=== PATIENT | female | born 1975 | race American Indian/Alaskan Native ===

== ENCOUNTER 2017-06-11 06:24 | Emergency (ER) | payer BC, OTHER ==
[2017-06-11 07:41] VITALS: BMI 23.9
[2017-06-11] MEDS ORDERED: DIPHTH,PERTUSS(ACELL),TET 0.5 ML DISP.SYRIN IM ONE (07:43)
--- NOTE | 2017-06-11 07:46 | PDOC ---
History of Present Illness - General Chief Complaint: Laceration Stated Complaint: FALL History Source: Patient Exam Limitations: No Limitations - History of Present Illness Initial Comments: 06/11/17 07:55 Chief complaint: Fell getting out of shower laceration lateral to right eyebrow slight pain and left thumb History of present illness: Patient is a 41-year-old female with a history of asthma, fibrocystic breast, and chronic lower back pain here today due to patient's sustained laceration to her right eyebrow hitting the wall and she lost her balance. 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 Patient also reports having slight discomfort to her left proximal thumb with minimal swelling and tenderness. Patient is unsure of her tetanus status agrees to have it updated here today. Patient is unsure status will get urine hCG. Patient denies any loss of consciousness, any headaches just tenderness around laceration site. Patient denies any nausea vomiting change in vision or level of alertness or any dizziness or any hemotympanum. 06/12/17 08:10 Occurred: reports: just prior to arrival Severity: reports: moderate Pain Location: reports: face (slighty rt of rt. eyebrow temporal area at laceration site ) Method of Injury: Yes: fall Modifying Factors: improves with: None Loss of Consciousness: no loss of consciousness Associated Symptoms (Fall): denies symptoms Past History - Past Medical History Allergies/Adverse Reactions: Allergies Allergy/AdvReac Type Severity Reaction Status Date / Time No Known Allergies Allergy Verified 06/11/17 06:34 Home Medications: Ambulatory Orders Albuterol Sulfate Inhaler - [Ventolin Hfa Inhaler -] 1 - 2 inh PO Q4H 06/11/17 Asthma: Yes Other medical history: chronic lower back pain, fibrocystic breasts - Psycho/Social/Smoking Cessation Hx Anxiety: No Suicidal Ideation: No Smoking History: Never smoked Have you smoked in the past 12 months: No Information on smoking cessation initiated: No Hx Alcohol Use: No Drug/Substance Use Hx: No Substance Use Type: None Review of Systems - Review of Systems Able to Perform ROS?: Yes Constitutional: No: Symptoms Reported HEENTM: No: Symptoms Reported Respiratory: No: Symptoms reported Cardiac (ROS): No: Symptoms Reported ABD/GI: No: Symptoms Reported : No: Symptoms Reported Musculoskeletal: Yes: Joint Pain (left proximal thumb ), Joint Swelling ( minimal left proximal thumb ) Integumentary: Yes: Other (laceration stellate rt. temporal area lateral to rt. eyebrow approx 4 cm length with area of 1.5cm cm branching off from vertical line of laceration) Neurological: No: Symptoms reported *Physical Exam - Vital Signs Last Vital Signs Temp Pulse Resp BP Pulse Ox 92 H 12 126/69 100 06/11/17 06:34 06/11/17 06:34 06/11/17 06:34 06/11/17 06:34 - Physical Exam General Appearance: Yes: Appropriately Dressed HEENT: positive: EOMI, FLY, Normal ENT Inspection Neck: negative: Tender, Lymphadenopathy (R), Lymphadenopathy (L), Rigidity, Tender lateral, Tender midline Respiratory/Chest: positive: Lungs Clear, Normal Breath Sounds. negative: Chest Tender, Respiratory Distress Cardiovascular: positive: Regular Rhythm, Regular Rate Extremity: positive: Normal Capillary Refill, Normal Range of Motion (left thumb ), Tender (left proximal thumb slight ), Swelling (minimal left proximal thumb ) Integumentary: positive: Other (laceration stellate lateral to rt. eyebrow approx 4 cm linear with 1.5 cm branch off of 4 cm laceration ) Neurologic: positive: commercial review appraiser II-XII NML intact, Fully Oriented, Alert, Normal Response, Respond to painful stimul, Responsive, Finger to Nose. negative: Numbness, Sensory Deficit Procedures - Additional Procedures Progress: 06/12/17 08:12 laceration cleansed with NS 0.9% Medical Decision Making - Medical Decision Making 06/11/17 07:57 Patient is a 41-year-old female with a history of asthma, fibrocystic breast, and chronic lower back pain here today due to patient's sustained laceration to her right eyebrow hitting the wall and she lost her balance. 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 Patient also reports having slight discomfort to her left proximal thumb with minimal swelling and tenderness. Patient is unsure of her tetanus status agrees to have it updated here today. Patient is unsure status will get urine hCG. Patient denies any loss of consciousness, any headaches just tenderness around laceration site. Patient denies any nausea vomiting change in vision or level of alertness or any dizziness or any hemotympanum. Laceration stellate lateral to right eyebrow Left thumb musculoskeletal pain approximately Plan: TDAP 0.5 ml IM now urine HCG pt agrees with for consult with plastic surgeon acetaminophen 975mg po now 06/11/17 07:58 Dr Bustillo called back he could see pt. in [place] later today to do repair, pt does not want to go there Dr. Mcnamara called he recommended that pt. come to his office for repair in approx 3 hours, his office staff informed they will call here 15 minutes prior to him being able to see her. Pt. 's insurance faxed to their office 06/11/17 08:04 06/11/17 09:54 06/11/17 10:30 PT TO BE DISCHARGE TO GO IMMEDIATELY TO DR. MCNAMARA'S OFFICE FOR LACERATION REPAIR 06/11/17 10:31 06/12/17 08:11 06/12/17 08:12 *DC/Admit/Observation/Transfer Diagnosis at time of Disposition: Laceration of face, complex Qualifiers: Encounter type: initial encounter Qualified Code(s): S01.91XA - Laceration without foreign body of unspecified part of head, initial encounter Fall Qualifiers: Encounter type: initial encounter Qualified Code(s): W19.XXXA - Unspecified fall, initial encounter - Discharge Dispostion Disposition: HOME Condition at time of disposition: Stable - Referrals Referrals: Mahad Mcnamara MD [Staff Physician] - - Patient Instructions Additional Instructions: TODAY YOUR TETANUS, DIPTHERIA, PERTUSSIS VACCINE WAS UPDATED GO DIRECTLY TO [facility] FOR REPAIR OF LACERATION TAKE ACETAMINOPHEN NEEDED DIRECTED BY GLOVE WRAPPER KEEP WOUND DRY ON FACE FOLLOW UP WITH YOUR PRIMARY CARE PROVIDER TOMORROW RETURN TO EMERGENCY ROOM IF ANY DIZZINESS, NAUSEA, VOMITING, SEVERE HEADACHE, CHANGE IN VISION OR LEVEL OF ALERTNESS
[2017-06-11] MEDS ORDERED: ACETAMINOPHEN 325 MG TABLET (FP) PO ONE (08:03)
[2017-06-11] MEDS ORDERED: ACETAMINOPHEN 325 MG TABLET (FP) ONE (08:16)
[2017-06-11 10:22] VITALS: BP 105/73; PULSE 79; TEMP 98
--- NOTE | 2017-06-12 11:59 | OP ---
Operative Note - Note: Operative Date: 06/11/17 Pre-Operative Diagnosis: Complex Open Wound Right Eyebrow and Temporal Area Operation: Debridement of wound right eyebrow and temporal region with complex closure Findings: Large Stellate wound Right eyebrow and temporal region. Wound with multiple converging lacerations. Longest component at superior margin of right eyebrow. Procedure: Wound cleaned with Betadine. Local area anesthetized with 1% Lidocaine with epinephrine. Superior edge of transverse laceration marked and excised. Several temporary 5-0 nylon sutures placed to align wound segments. Deep tissues approximated with 4-0 Biosyn sutures in interrupted buried fashion. Skin closed with 6-0 and 7-0 nylon sutures in interrupted fashion. Temporary sutures then removed. Wound dressed with Bacitracin and sterile gauze. Patient will return to office Friday. Post-Operative Diagnosis: Same as Pre-op Surgeon: Mahad Lopez Anesthesia: Local Operative Report Dictated: No
== END 2017-06-11 10:23 | disposition home or self-care (01) ==
LOC: JER 06:24
PROC: 3E0234Z Introduction of Serum, Toxoid and Vaccine into Muscle, Percutaneous Approach (ICD-10-PCS; principal; 2017-06-11)
DX: S01.111A Laceration without foreign body of right eyelid and periocular area, initial encounter (principal); W18.2XXA Fall in (into) shower or empty bathtub, initial encounter; Y93.E1 Activity, personal bathing and showering; Y92.031 Bathroom in apartment as the place of occurrence of the external cause; Y99.8 Other external cause status
CPT/HCPCS: 90715; 99283-25

== ENCOUNTER 2020-07-01 21:08 | Emergency (ER) | payer OTHER ==
[2020-07-01 21:17] VITALS: BP 129/87; PULSE 67; TEMP 97; BMI 22.4
--- OUTSIDE RECORDS SUMMARY | 2020-07-01 21:29 | XMS ---
:1975 Author Organization [facility] Care Team Providers Name Role Phone Mohamud Aster Unavailable Unavailable Matty Agustin Unavailable Unavailable Rupa Ramirez Unavailable Unavailable Earleowitz, F Unavailable Unavailable Sammy Unavailable Unavailable SKYLER, L MD Unavailable Unavailable SKYLER, L MD Unavailable Unavailable SKYLER, L MD Unavailable Unavailable SKYLER, L MD Unavailable Unavailable SKYLER, L MD Unavailable Unavailable SKYLER, L MD Unavailable Unavailable SKYLER, L MD Unavailable Unavailable SKYLER, L MD Unavailable Unavailable Cutler Unavailable Unavailable LaPorta, A Unavailable Unavailable Fitzgibbon, D Unavailable Unavailable Bures Unavailable Unavailable Nunu Unavailable Unavailable Bustillo, B Unavailable Unavailable Mahad, C Unavailable Unavailable Jackson, N Unavailable Unavailable Pranav, M Unavailable Unavailable Re-disclosure Warning The records that you are about to access may contain information from federally- assisted alcohol or drug abuse programs. If such information is present, then the following federally mandated warning applies: This information has been disclosed to you from records protected by federal confidentiality rules (42 CFR part 2). The federal rules prohibit you from making any further disclosure of this information unless further disclosure is expressly permitted by the written consent of the person to whom it pertains or as otherwise permitted by 42 CFR part 2. A general authorization for the release of medical or other information is NOT sufficient for this purpose. The Federal rules restrict any use of the information to criminally investigate or prosecute any alcohol or drug abuse patient.The records that you are about to access may contain highly sensitive health information, the redisclosure of which is protected by Article 27-F of the [place] State Public Health law. If you continue you may haveaccess to information: Regarding HIV / AIDS; Provided by facilities licensed or operated by the [facility] Office of Mental Health; or Provided by the [facility] Office for People With Developmental Disabilities. If such information is present, then the following [facility] mandated warning applies: This information has been disclosed to you from confidential records which are protected by state law. State law prohibits you from making any further disclosure of this information without the specific written consent of the person to whom it pertains, or as otherwise permitted by law. Any unauthorized further disclosure in violation of state law may result in a fine or detention sentence or both. A general authorization for the release of medical or other information is NOT sufficient authorization for further disclosure. Allergies and Adverse Reactions Type Description Substance Reaction Status Data Source(s ) 3 NO KNOWN ALLERGIES Clindamycin 150 MG Oral NEXTGEN ([facility] Tablet [Clintabs] [facility]) Encounters Encounter Providers Location Date Indications Data Source(s ) Outpatient Attender: Herminio 05/10/2020 NEXTGEN ([facility] Bures 12:00:00 AM [facility]) Outpatient Attender: MOMO 05/01/2020 NEXTGEN ([facility] SKYLER ZAVALA 11:41:00 AM [facility]) Outpatient Attender: Azeem 12/07/2019 NEXTGEN ([facility] FitzgibbonReferrer: 02:00:[address] [facility] Ke Tobin [facility]) Outpatient Attender: Ke 12/07/2019 NEXTGEN (Bisi TobinReferrer: 11:45:00 AM [facility]) Outpatient Attender: Azeem 12/07/2019 NEXTGEN ([facility] Fitzgibbon 12:00:00 AM [facility]) Outpatient Attender: Marleny 12/03/2019 NEXTGEN ([facility] Diazerrer: 09:40:00 AM [facility]) Outpatient Attender: Ke Tobin 12/03/2019 NEXT GEN ([facility] 12:00:00 AM [facility]) Outpatient Attender: Herminio 11/23/2019 NEXTGEN ([facility] Bures 05:39:00 [place] [facility] [place] [facility] Outpatient Attender: Marleny 11/19/2019 NEXTGEN ([facility] ReillyReferrer: Ross 02:20:00 PM [facility] [facility] [place] [facility]) Outpatient Attender: Ke 11/15/2019 NEXTGEN (Bisi areafshin TobinReferrer: Ke 09:45:00 AM [facility] [place] [facility]ad [facility]) Outpatient Attender: Marleny 11/05/2019 NEXTGEN ([facility] ReillyReferrer: Ross 09:00:00 AM [facility] [facility] [place] [facility] [facility]) Outpatient Attender: Herminio 11/03/2019 NEXTGEN ([facility] BuresReferrer: 02:00:00 PM [facility] [place] [facility]io [facility] Outpatient Attender: Lisa 11/02/2019 NEXTGEN ([facility] Jacobowitz 12:18:00 PM [facility] [place] [facility] Outpatient Attender: Lisa 10/29/2019 NEXTGEN ([facility] JacobowitzReferrer: 11:45:00 AM [facility] [place] Lisa [facility]owitz [facility]) Outpatient Attender: Lisa 10/29/2019 NEXTGEN ([facility] Jacobowitz 08:50:00 AM [facility] [place] [facility] Outpatient Attender: Mahad 10/29/2019 NEXTGEN ( [facility] BergerReferrer: 12:00:00 AM [facility] [place] Lisa [facility]owitz [facility] Outpatient Attender: Lisa 10/28/2019 NEXTGEN ([facility] JacobowitzReferrer: 09:00:00 AM [facility] [place] Lisa Jacobowitz [facility]) Outpatient Attender: Fartun 10/28/2019 NEXTGEN ([facility] MathewsReferrer: 08:45:00 AM [facility] [place] [facility]) Outpatient Attender: Fartun 10/27/2019 NEXTGEN ([facility] [place] 12:44:00 PM [facility] [place] [facility] Outpatient Attender: Fartun 10/25/2019 NEXTGEN ([facility] [place] 01:11:00 PM [facility] [place] [facility] Outpatient Attender: Fartun 10/22/2019 NEXTGEN ([facility] MathewsReferrer: 10:45:00 AM [facility] [place] [facility]) Outpatient Attender: Aster 10/22/2019 NEXTGEN ([facility] XuReferrer: Fartun 09:30:00 AM [facility] [place] [facility]) Outpatient Attender: Marleny 10/22/2019 NEXTGEN ([facility] ReillyReferrer: Ross 08:20:00 AM [facility] [facility] [place] [facility] [facility]) Outpatient Attender: Zander Eddy 10/18/2019 NEXTG EN ([facility] 02:48:00 PM [facility] [place] [facility]) Outpatient Attender: Fartun 10/11/2019 NEXTGEN ([facility] [place] 12:52:00 PM [facility] [place] [facility]) Outpatient Attender: Marleny 10/08/2019 NEXTGEN ([facility] ReillyReferrer: Ross 11:20:00 AM Med [facility] [place] [facility]) Outpatient Attender: Aster 10/04/2019 NEXTGEN ([facility] XuReferrer: Fartun 01:00:00 PM [facility]i car[facility] [place] [facility]) Outpatient Attender: Aster Mallory 09/29/2019 NEXTGEN ([facility] 11:28:00 AM [facility] [place] [facility]) Outpatient Attender: Aster Mallory 09/27/2019 NEXTGEN ([facility] 12:00:00 PM [facility] [place] [facility]) Outpatient Attender: Aster 09/24/2019 NEXTGEN ([facility] XuReferrer: Aster Mallory 10:45:00 AM [facility] car[facility] [place] [facility]) Outpatient Attender: Marleny 09/24/2019 NEXTGEN ([facility] ReillyReferrer: 10:20:00 AM [facility] [place] Marco Antonio Jackson [facility]) Outpatient Attender: Zander Eddy 09/06/2019 NEXTG EN ([facility] 03:59:00 PM [facility] [place] [facility]) Outpatient Attender: Zander Eddy 09/06/2019 NEXTG EN ([facility] 03:56:00 PM [facility] [place] [facility]) Outpatient Attender: Marleny 09/03/2019 NEXTGEN ([facility] ReillyReferrer: 10:20:00 AM [facility] [place] Marco Antonio Jackson [facility]) Outpatient Attender: Herminio 09/02/2019 NEXTGEN ([facility] BuresReferrer: 12:20:00 PM [facility] [place] Herminio [facility]) Outpatient Attender: Zander 08/31/2019 NEXTGEN ([facility] LorenanReferrer: Zander 02:15:00 PM Medic [facility] [place] Nunu [facility]) Outpatient Attender: Alcon 08/13/2019 NEXTGEN ( [facility] BrigidophReferrer: 11:00:00 AM [facility] [place] Tobin [facility] ) Outpatient Attender: Ke 08/13/2019 NEXTGEN ([facility] MahadReferrer: 10:15:00 AM [facility] [place] EDT Medical [facility]) Outpatient Attender: Marleny 08/13/2019 NEXTGEN ([facility] Beckyeferrer: Rafael 09:40:00 AM Med ical [place] He EDT Medical Group ) Outpatient Attender: Fartun 07/27/2019 NEXTGEN ([facility] [place] 10:52:00 AM [facility] [place] [facility] ) Outpatient Attender: Fartun 07/23/2019 NEXTGEN ([facility] MathsohamReferrer: 11:00:00 AM [facility] [place] EDT Medical [facility]) Outpatient Attender: Marleny 07/23/2019 NEXTGEN ([facility] KamlayReferrer: 09:40:00 AM [facility] [place] Marleny [facility] EDT Medical [facility]) Outpatient Attender: Mariposa 03/24/2019 NEXTGE N ([facility] LaPorta 12:52:00 PM Medical - [facility]) Outpatient Attender: Herminio 03/19/2019 NEXTGEN ([facility] BuresReferrer: 10:20:00 AM [facility] Herminio Bures EDT Medical Grou p PC) Outpatient Attender: Matty 03/04/2019 NEXTGEN ([facility] RaynerReferrer: 03:00:00 PM [facility] Starr Vamsi EDT Medical Gr oup PC) Outpatient Attender: Herminio 02/10/2019 NEXTGEN ([facility] BuresReferrer: 04:41:00 PM [facility] Herminio Bures EDT Medical Gr[facility] p PC) Medications Medication Brand Start Product Dose Route Administrative Pharmacy [facility] Indications Reaction Description Data Name Date Form Instructions Instructions Source(s) gabapentin GABAPE take 2 capsule RP NEXTGEN 100 MG Oral NTIN by oral route 2 ([facility] Capsule 100 times every day Medical - mg 100 mg [facility] ) This may be an active medication. No end date is available. Start date above may not reflect actual date the medication was s tarted. 30 ACTUAT BREO 11/23/2019 inhale 1 unit RP NEXTGEN fluticasone ELLIPTA 12:00:00 AM by inhalation ([facility] furoate 0.2 EST route every Medical - Or MG/ACTUAT / day [facility] dical vilanterol Group ) 0.025 MG/ACTUAT Dry Powder Inhaler [Breo] 200 mcg-25 mcg/dose 200 mcg-25 mcg/dose This may be an active medication. No end date is available. Prednisone 10 PREDNISONE 10/29/2019 4,4,3,3,2,2,1,1 RP NEXTGEN MG Oral 12:00:00 AM PER INSTRUCTIONS ([facility] Tablet 10 mg EST Medical - [place] 10 mg [facility] Medical [facility]) This may be an active medication. No end date is available. imiquimod 50 IMIQUIMOD 10/22/2019 apply by RP NEXTGEN MG/ML Topical 12:00:00 AM EST topical route ([facility] Cream 5 % 5 % 5 times every Medical - [place] week to the [place] [facility] dical affected Group [facility]) area(s) on feet at bedtime and cover, wash off in AM This may be an active medication. No end date is available. Tacrolimus TACROLIMUS 09/03/2019 apply by RP NEXTGEN 0.0003 MG/MG 12:00:00 AM topical route ([facility] Topical EST 2 times every Med ical - Mt Ointment 0.03 % day a thin [place] [facility] 0.03 % layer to the Group PC) affected area(s) ; rub in gently and completely This may be an active medication. No end date is available. Hydrocortisone HYDROCORTISONE 09/03/2019 apply by RP NEXTGEN 0.025 MG/MG 12:00:00 AM topical ([facility] Topical Ointment EST route 2 Medical - Mt 2.5 % 2.5 % times every K rosendo day a thin Medical layer to the Group P C) affected area(s) for 1 week only 200 ACTUAT VENTOLIN HFA 07/23/2019 inhale 2 RP NEXTGEN Albuterol 0.09 12:00:00 AM puff by ([facility] MG/ACTUAT Metered EDT inhalation Medical - [place] Dose Inhaler route every [place] [Ventolin] 90 mcg 4 - 6 hours Medical 90 mcg as needed Group PC ) This may be an active medication. No end date is available. Insurance Providers Payer name Policy type Policy ID Covered Covered democrat's Policy P bhumi / Coverage democrat ID relationship to [place] [facility] ormation type webster [facility] [id number] [facility] [id number] Healthcare Problems, Conditions, and Diagnoses Code Display Name Description Problem Type Effective Data Sour ce(s) Dates H91.8x9 Other specified Other specified Diagnosis 12/07/2019 NEXT GEN hearing loss, hearing loss, 02:00:00 PM ([facility] unspecified ear unspecified ear EST Medi carol - [facility]) R05 Cough Post-viral cough Diagnosis 11/03/2019 NEXTGEN syndrome 02:00:00 PM ([facility] EST Medical [facility]) J45.30 Mild persistent Mild persistent Diagnosis 11/03/2019 NEXT GEN asthma, asthma without 02:00:00 PM ([facility] uncomplicated complication EST Medical [facility]) L65.9 Nonscarring hair Hair loss Diagnosis 10/22/2019 NEXTGEN loss, unspecified 10:45:00 AM ([facility] EST Medical [facility]) E55.9 Vitamin D Vitamin D Diagnosis 10/22/2019 NEXTGEN deficiency, deficiency, 10:45:00 AM ([facility] unspecified unspecified [facility]) H02.88B Meibomian gland Meibomian gland Diagnosis 09/24/2019 NEXT GEN dysfunction left dysfunction left 10:45:00 AM ( [facility] eye, upper and eye, upper and EST Medica l - [place] lower eyelids lower eyelids [facility] dical Group PC) H02.88A Meibomian gland Meibomian gland Diagnosis 09/24/2019 NEXT GEN dysfunction (MGD) dysfunction (MGD) 10:45:00 AM ([facility] of upper and lower of upper and EST Medi carol - [place] lids of both eyes lower lids of [facility] both eyes Group PC) H01.136 Eczematous Eczema of left Diagnosis 09/24/2019 NEXTGEN dermatitis of left eyelid 10:45:00 AM ([facility] eye, unspecified EST Medical [facility] eyelid [facility]) H01.133 Eczematous Eczema of right Diagnosis 09/24/2019 NEXTGEN dermatitis of eyelid 10:45:00 AM ([facility] right eye, EST Medical - Or unspecified eyelid [facility]) J45.998 Other asthma Poorly controlled Diagnosis 09/02/2019 NEXTG EN persistent asthma 12:20:00 PM ([facility]) R68.81 Early satiety Early satiety Diagnosis 08/31/2019 NEXTGEN 02:15:00 PM ([facility] EST [facility]) R14.0 Abdominal Bloating Diagnosis 08/31/2019 NEXTGEN distension 02:15:00 PM ([facility] (gaseous) EST [facility] PC) H69.81 Other specified Dysfunction of Diagnosis 08/13/2019 NEXTG EN disorders of right eustachian 11:00:00 AM ([facility] Eustachian tube, tube EDT Medical [facility] right ear [facility]) M54.5 Low back pain Midline low back Diagnosis 07/23/2019 NEXTG EN pain without 11:00:00 AM ([facility] sciatica, EDT Medical - Or unspecified [facility] Medical chronicity Group PC) 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 07/23/2019 NE XTGEN pain syndrome I of pain syndrome 11:00:00 AM ([facility] right upper limb type 1 of right EDT Med ical - [facility] Z77.011 Contact with and Lead exposure Diagnosis 07/23/2019 NEXTG EN (suspected) 11:00:00 AM ([facility] exposure to lead EDT Medical - Or Home D[facility]) R92.8 Other abnormal and Other abnormal Diagnosis 07/23/2019 NE XTGEN inconclusive and inconclusive 11:00:00 AM ([facility] findings on findings on EDT Medical - Or diagnostic imaging diagnostic [facility] of breast imaging of breast Group P C) J45.20 Mild intermittent Mild intermittent Diagnosis 07/23/2019 NEXTGEN asthma, asthma, 11:00:00 AM ([facility] uncomplicated uncomplicated EDT Medical - [place] [facility]) Z00.00 Encounter for Health care Diagnosis 07/23/2019 NEXTGEN general adult maintenance 11:00:00 AM ([facility] medical EDT Medical - Or examination [facility] without abnormal Group PC ) findings Z91.19 Patient's Medical Diagnosis 03/19/2019 NEXTGEN noncompliance with non-compliance 10:20:00 AM ( [facility] other medical EDT Medical - M t treatment and [facility] regimen [facility]) N30.00 Acute cystitis Acute cystitis Diagnosis 03/04/2019 NEXTGE N without hematuria without hematuria 03:00:00 PM ([facility] EDT Medical - [place] [facility]) 779.6 TERMINATION OF Termination Of Diagnosis 12/15/2018 CLAIRE AY ([facility] (FETUS) 06:13:00 PM [facility]) Surgeries/Procedures Procedure Description Date Indications Data Source(s) TYMPANOMETRY & REFLEX TYMPANOMETRY & REFLEX 12/07/2019 NEXTGEN THRESH THRESH 12:00:00 AM ([facility] EST Medical - [facility]) COMPREHENSIVE HEARING COMPREHENSIVE HEARING 12/07/2019 NEXTGEN TEST TEST 12:00:00 AM ([facility] Medical - [facility]) DESTRUCT B9 LESION DESTRUCT B9 LESION 11/19/2019 NEX TGEN 1-14 1-14 12:00:00 [facility] OFFICE/OUTPATIENT OFFICE/OUTPATIENT 11/03/2019 NEXTG EN VISIT EST VISIT EST 12:00:00 AM ([facility] Medical - [facility]) X-RAY EXAM CHEST 2 X-RAY EXAM CHEST 2 10/29/2019 NEX TGEN VIEWS VIEWS 12:00:00 AM [facility] OFFICE/OUTPATIENT OFFICE/OUTPATIENT 10/29/2019 NEXTG EN VISIT EST VISIT EST 12:00:00 AM ([facility] Medical - [facility]) EYE EXAM ESTABLISH EYE EXAM ESTABLISH 09/24/2019 NEX TGEN PATIENT PATIENT 12:00:00 AM ([facility] Medical - [facility]) OFFICE/OUTPATIENT OFFICE/OUTPATIENT 09/03/2019 NEXTG EN VISIT EST VISIT EST 12:00:00 AM ([facility]) OFFICE CONSULTATION OFFICE CONSULTATION 08/31/2019 N EXTGEN 12:00:00 AM ([facility]) PREV VISIT EST AGE PREV VISIT EST AGE 1007/23/2019 NEX TGEN 40-64 40-64 12:00:00 AM ([facility] Medical [facility]) Results ID Date Data Source [id number] 06/16/2020 07:59:00 AM EDT [facility] Name Value Range Interpretation Description Data Sup porting Code Source(s) Document(s ) SARS [facility] Coronavirus 2 RNA Presence Respiratory Specimen TALIA Probe Detection This lab was ordered by [facility] and rep orted by [facility]. Procedure
[2020-07-01] MEDS ORDERED: METHOCARBAMOL 500 MG TABLET PO ONE (21:54)
[2020-07-01] MEDS ORDERED: KETOROLAC TROMETHAMINE 30 MG/1 ML VIAL IM ONE (21:54)
--- NOTE | 2020-07-01 22:02 | PDOC ---
History of Present Illness - General Chief Complaint: Pain Stated Complaint: BACK PAIN Time Seen by Provider: 07/01/20 21:18 History Source: Patient Exam Limitations: Clinical Condition - History of Present Illness Initial Comments: 07/01/20 21:58 Patient with past medical history of chronic cervical spondylosis and lumbar spine multiple bulging and herniated disc being followed by neurosurgery present with complaint of 4-day history of persistent severe lower back pain and right side of neck pain which has not been improving with Tylenol. Patient reported she has seen multiple providers for her chronic neck and lower back pain and has been suggested to have surgery done due to severe bulging disc and disc herniations. Patient report having MRI done 2 months ago which shows bulging disks at C5- C6 cervical spine with multiple herniations to lumbosacral spine. Denies saddle paresthesia, urinary or fecal incontinence. Denies any other symptom Is this a multiple visit Asthma Patient?: No Timing/Duration: constant Past History - Medical History Allergies/Adverse Reactions: Allergies Allergy/AdvReac Type Severity Reaction Status Date / Time No Known Allergies Allergy Verified 07/01/20 21:16 Home Medications: Ambulatory Orders Albuterol Sulfate Inhaler - [Ventolin Hfa Inhaler -] 1 - 2 inh PO Q4H 06/11/17 Ketorolac Tromethamine [Toradol] 10 mg PO Q8H PRN #21 tablet 07/01/20 Lidocaine 5% Patch [Lidoderm -] 1 patch TP DAILY #30 patch 07/01/20 Methocarbamol [Robaxin -] 500 mg PO BID PRN #14 tablet 07/01/20 Asthma: Yes COPD: No Other medical history: chronic back pain, CRPS right wrist - Reproductive History Is Patient Now?: No - Psycho-Social/Smoking History Smoking History: Never smoked Have you smoked in the past 12 months: No Review of Systems - Review of Systems Able to Perform ROS?: Yes Is the patient limited Faroese proficient: No Constitutional: No: Chills, Fever, Malaise HEENTM: No: Symptoms Reported, See HPI, Eye Pain, Blurred Vision, Tearing, Recent change in vision, Double Vision, Cataracts, Ear Pain, Ocular Prothesis, Ear Discharge, Nose Pain, Nose Congestion, Tinnitus, Nose Bleeding, Hearing Loss, Throat Pain, Throat Swelling, Mouth Pain, Dental Problems, Difficulty Swallowing, Mouth Swelling, Other Respiratory: No: Symptoms reported, See HPI, Cough, Orthopnea, Shortness of Breath, SOB with Exertion, SOB at Rest, Stridor, Wheezing, Productive cough, Hemoptysis, Other Cardiac (ROS): No: Symptoms Reported ABD/GI: No: Symptoms Reported, Nausea, Vomiting Musculoskeletal: Yes: Symptoms Reported, See HPI, Back Pain, Neck Pain (right side of neck pain) Integumentary: No: Symptoms Reported Neurological: No: Symptoms reported, Numbness, Paresthesia, Tingling, Weakness All Other Systems: Reviewed and Negative *Physical Exam - Vital Signs Last Vital Signs Temp Pulse Resp BP Pulse Ox 97 F L 67 18 129/87 99 07/01/20 21:12 07/01/20 21:12 07/01/20 21:12 07/01/20 21:12 07/01/20 21:12 - Physical Exam 07/01/20 22:00 GENERAL: Well developed, well nourished. Awake and alert in moderate acute distress. PULMONARY: No evidence of respiratory distress. MUSCULOSKELETAL : moderate tenderness to right paracervical muscle of lower cervical spine over C5-C7. No midline tenderness. Moderate tenderness to lower para vertebral muscle of lumbosacral spine of C2-S1 on bilateral sides with no midline tenderness. No radiculopathy. SKIN: Warm and dry. Normal capillary refill. NEUROLOGICAL: Alert, awake, appropriate. No motor deficits in the lower extremities. Gait is normal without ataxia. PSYCHIATRIC: Cooperative. Good eye contact. Appropriate mood and affect. General Appearance: Yes: Nourished, Appropriately Dressed, Moderate Distress Medical Decision Making - Medical Decision Making 07/01/20 21:59 Patient with past medical history of chronic cervical spondylosis and lumbar spine multiple bulging and herniated disc being followed by neurosurgery present with complaint of 4-day history of persistent severe lower back pain and right side of neck pain which has not been improving with Tylenol. Patient reported she has seen multiple providers for her chronic neck and lower back pain and has been suggested to have surgery done due to severe bulging disc and disc herniations. Patient report having MRI done 2 months ago which shows bulging disks at C5- C6 cervical spine with multiple herniations to lumbosacral spine. Denies saddle paresthesia, urinary or fecal incontinence. Denies any other symptom Exam significant for moderate tenderness to right paracervical muscle of lower cervical spine over C5-C7. No midline tenderness. Moderate tenderness to lower para vertebral muscle of lumbosacral spine of C2-S1 on bilateral sides with no midline tenderness. No radiculopathy. Patient symptoms likely chronic back pain exacerbation. Toradol 30 mg IM and Robaxin thousand milligrams p.o. ordered for pain and spasm. Reassess after 20 minutes 07/01/20 23:08 Patient report improvement low back with Toradol Robaxin. Lidoderm patch placed low back to help with pain. Patient stable for discharge on p.o. Toradol PRN for pain Robaxin for spasm with follow-up with patient's neurosurgeon Discharge - Discharge Information Problems reviewed: Yes Clinical Impression/Diagnosis: Neck pain on right side Lumbago without sciatica Qualifiers: Chronicity: chronic Back pain laterality: bilateral Qualified Code(s): M54.5 - Low back pain Condition: Stable Disposition: HOME - Admission No - Additional Discharge Information Prescriptions: Lidocaine 5% Patch [Lidoderm -] 1 patch TP DAILY #30 patch Methocarbamol [Robaxin -] 500 mg PO BID PRN #14 tablet PRN Reason: back spasm Ketorolac Tromethamine [Toradol] 10 mg PO Q8H PRN #21 tablet PRN Reason: pain - Follow up/Referral - Patient Discharge Instructions Patient Printed Discharge Instructions: DI for Spondylolisthesis Additional Instructions: Take prescribed medication as needed for back pain and spasm. Apply heat therapy to neck and lower back area as needed for pain. Follow-up with your orthopedic it training specialist - Post Discharge Activity
[2020-07-01] MEDS ORDERED: METHOCARBAMOL 500 MG TABLET ONE (22:10)
[2020-07-01] MEDS ORDERED: KETOROLAC TROMETHAMINE 30 MG/1 ML VIAL ONE (22:11)
[2020-07-01] MEDS ORDERED: LIDOCAINE 5% TOPICAL PATCH TP ONE (22:53)
[2020-07-01] MEDS ORDERED: LIDOCAINE 5% TOPICAL PATCH ONE (22:56)
== END 2020-07-01 23:05 | disposition home or self-care (01) ==
LOC: JERFT 21:08
PROC: 3E0233Z Introduction of Anti-inflammatory into Muscle, Percutaneous Approach (ICD-10-PCS; principal; 2020-07-01)
DX: M54.5 Low back pain (principal); M54.2 Cervicalgia
CPT/HCPCS: 99284-25

== ENCOUNTER 2021-01-06 19:54 | Emergency (ER) | payer OTHER ==
[2021-01-06 20:01] VITALS: BP 122/72; PULSE 62; TEMP 99; BMI 20.5
== END 2021-01-06 20:38 | disposition home or self-care (01) ==
LOC: FER 19:54
DX: R53.83 Other fatigue (principal)
CPT/HCPCS: 99283-25; C9803; U0003

== ENCOUNTER 2021-09-12 11:08 | Emergency (ER) | payer OTHER ==
[2021-09-12 11:29] VITALS: BP 109/72; PULSE 79; TEMP 98.6; BMI 19.3
[2021-09-12] MEDS ORDERED: KETOROLAC TROMETHAMINE 60 MG/2 ML VIAL IM ONE (12:33)
[2021-09-12] MEDS ORDERED: predniSONE 20 MG TABLET (UD) PO ONE (12:33)
[2021-09-12] MEDS ORDERED: predniSONE 20 MG TABLET (UD) ONE (12:39)
[2021-09-12] MEDS ORDERED: KETOROLAC TROMETHAMINE 60 MG/2 ML VIAL ONE (12:39)
== END 2021-09-12 13:46 | disposition home or self-care (01) ==
LOC: JERFT 11:08
PROC: 3E0233Z Introduction of Anti-inflammatory into Muscle, Percutaneous Approach (ICD-10-PCS; principal; 2021-09-12)
DX: M54.50 Low back pain, unspecified (principal)
CPT/HCPCS: 99284-25

== ENCOUNTER 2021-09-19 10:50 | Emergency (ER) | payer OTHER ==
[2021-09-19 11:04] VITALS: BP 109/72; PULSE 98; TEMP 97.8; BMI 19.3
[2021-09-19] MEDS ORDERED: CYCLOBENZAPRINE HCL 10 MG TABLET (FP) PO ONE (12:48)
[2021-09-19] MEDS ORDERED: KETOROLAC TROMETHAMINE 60 MG/2 ML VIAL IVPUSH ONE (12:48)
[2021-09-19] MEDS ORDERED: morphine CARPU-JECT 2 MG/1 ML DISP.SYRIN IVPUSH ONE ×3 (12:48→21:34)
[2021-09-19] MEDS ORDERED: KETOROLAC TROMETHAMINE 15 MG/ML VIAL ONE (12:59)
[2021-09-19] MEDS ORDERED: CYCLOBENZAPRINE HCL 10 MG TABLET (FP) ONE (12:59)
[2021-09-19] MEDS ORDERED: morphine SULFATE 4 MG/ML VIAL ONE ×3 (13:03→21:46)
[2021-09-19] MEDS ORDERED: DEXAMETHASONE SOD PHOSPHATE 10 MG/1 ML VIAL IVPUSH ONE (16:13)
[2021-09-19] MEDS ORDERED: DEXAMETHASONE SOD PHOSPHATE 10 MG/1 ML VIAL ONE (16:25)
[2021-09-19] MEDS ORDERED: KETOROLAC TROMETHAMINE 30 MG/1 ML VIAL IVPUSH ONE (21:34)
[2021-09-19] MEDS ORDERED: diazePAM 5 MG TABLET PO ONE (21:34)
[2021-09-19] MEDS ORDERED: LIDOCAINE 5% TOPICAL PATCH TP ONE (21:35)
[2021-09-19] MEDS ORDERED: diazePAM 5 MG TABLET ONE (21:46)
[2021-09-19] MEDS ORDERED: LIDOCAINE 5% TOPICAL PATCH ONE (21:47)
[2021-09-19] MEDS ORDERED: KETOROLAC TROMETHAMINE 30 MG/1 ML VIAL ONE (21:47)
[2021-09-19] MEDS ORDERED: LIDOCAINE PATCH REMOVAL MC SCH (22:00)
== END 2021-09-19 20:00 | disposition home or self-care (01) ==
LOC: JERFT 10:50
PROC: 3E033GC Introduction of Other Therapeutic Substance into Peripheral Vein, Percutaneous Approach (ICD-10-PCS; principal; 2021-09-19)
DX: M54.50 Low back pain, unspecified (principal)
CPT/HCPCS: 36415; 72131-TC; 84702; 84703; 99285-25; J1100